=== PATIENT | male | born 1950 | race African-American/Black ===

== ENCOUNTER 2019-12-02 16:10 | Inpatient (IN) | payer OTHER ==
[2019-12-02 17:11] VITALS: BMI 17.6
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
[2019-12-02] MEDS ORDERED: MAGNESIUM HYDROX 2400MG/30ML ORAL SUSPENSION 30 ML CUP PO PRN (18:51)
[2019-12-02] MEDS ORDERED: NICOTINE POLACRILEX 2 MG GUM BUC PRN (18:51)
[2019-12-02] MEDS ORDERED: MENTHOL/PHENOL 1 EACH UD MM PRN (18:51)
[2019-12-02] MEDS ORDERED: MAG HYDROX/AL HYDROX/SIMETH 30 ML UNIT-DOSE CUP PO PRN (18:51)
[2019-12-02] MEDS ORDERED: METHOCARBAMOL 500 MG TABLET PO PRN (18:51)
[2019-12-02] MEDS ORDERED: MAGNESIUM CITRATE 300 ML BOTTLE PO PRN (18:51)
[2019-12-02] MEDS ORDERED: IBUPROFEN 400 MG TABLET (FP) PO PRN (18:51)
[2019-12-02] MEDS ORDERED: BISMUTH SUBSALICYLATE 524 MG/30 ML UD PO PRN (18:51)
[2019-12-02] MEDS ORDERED: chlordiazePOXIDE HCL 25 MG CAPSULE PO PRN (18:51)
[2019-12-02] MEDS ORDERED: ACETAMINOPHEN 325 MG TABLET (FP) PO PRN ×2 (18:51)
[2019-12-02] MEDS ORDERED: ONDANSETRON *ODT* 4 MG TABLET SL ONE (18:51)
[2019-12-02] MEDS: chlordiazePOXIDE HCL 25 MG CAPSULE PO SCH (22:40)
[2019-12-02] MEDS: THIAMINE HCL 100 MG TABLET (FP) PO SCH (22:40)
[2019-12-02] MEDS: MELATONIN 5 MG TABLETS PO SCH (22:45)
[2019-12-03] MEDS: chlordiazePOXIDE HCL 25 MG CAPSULE PO SCH ×4 (05:19→22:34)
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
[2019-12-03] MEDS: ASPIRIN 81 MG CHEWABLE TABLETS PO SCH (10:16)
[2019-12-03] MEDS: FAMOTIDINE 20 MG TABLET PO SCH (10:16)
[2019-12-03] MEDS: PRENATAL VITAMINS W/ FOLIC ACID TABLET (FP) PO SCH (10:17)
[2019-12-03] MEDS: NICOTINE 14 MG/24 HOURS TOPICAL PATCH TD SCH (10:25)
[2019-12-03 10:32] LABS: HEMATOCRIT 35.8 % (35.4-49); HEMOGLOBIN 11.9 GM/dL (11.7-16.9); MCH 33.6 pg (25.7-33.7); MCHC 33.3 g/dl (32.0-35.9); MEAN CELL VOLUME 100.9 fl (80-96); MEAN PLT VOLUME 8.7 fl (7.5-11.1); PLATELET COUNT 92 K/MM3 (134-434); RBC 3.54 M/mm3 (4.00-5.60); RDW 15.3 % (11.9-15.9); WHITE BLOOD COUNT 2.4 K/mm3 (4.0-10.0)
[2019-12-03 10:44] LABS: ALBUMIN 3.5 g/dl (3.4-5.0); BILIRUBIN,TOTAL 0.9 mg/dL (0.2-1); BLOOD UREA NITROGEN 6.4 mg/dL (7-18); CALCIUM 8.9 mg/dL (8.5-10.1); CREATININE 0.9 mg/dL (0.55-1.3); POTASSIUM 3.8 mmol/L (3.5-5.1); TOT PROT 7.3 g/dl (6.4-8.2)
[2019-12-03] MEDS ORDERED: ALBUTEROL SO4 HFA INHALER IH PRN (10:56)
--- NOTE | 2019-12-03 11:03 | PN ---
S CIWA - CIWA Score Nausea/Vomitin-Mild Nausea/No Vomiting Muscle Tremors: 2 Anxiety: 2 Agitation: 2 Paroxysmal Sweats: 1-Minimal Palms Moist Orientation: 0-Oriented Tacttile Disturbances: 1-Very Mild Itch/Numbness Auditory Disturbances: 0-None Visual Disturbances: 0-None Headache: 2-Mild CIWA-Ar Total Score: 11 S Progress Note (SOAP) Subjective: alert,irritable,anxious,interrupted sleep,aching pain,feel weak Objective: 12/03/19 11:03 Vital Signs Temperature 97.3 F L 12/03/19 08:34 Pulse Rate 105 H 12/03/19 08:34 Respiratory Rate 16 12/03/19 08:34 Blood Pressure 134/95 12/03/19 08:34 O2 Sat by Pulse Oximetry (%) 100 12/03/19 08:34 12/03/19 11:04 Laboratory Last Values WBC 2.4 K/mm3 (4.0-10.0) L 12/03/19 08:15 RBC 3.54 M/mm3 (4.00-5.60) L 12/03/19 08:15 Hgb 11.9 GM/dL (11.7-16.9) 12/03/19 08:15 Hct 35.8 % (35.4-49) 12/03/19 08:15 MCV 100.9 fl (80-96) H 12/03/19 08:15 MCH 33.6 pg (25.7-33.7) D 12/03/19 08:15 MCHC 33.3 g/dl (32.0-35.9) 12/03/19 08:15 RDW 15.3 % (11.9-15.9) D 12/03/19 08:15 Plt Count 92 K/MM3 (134-434) L D 12/03/19 08:15 MPV 8.7 fl (7.5-11.1) 12/03/19 08:15 Sodium 141 mmol/L (136-145) 12/03/19 08:15 Potassium 3.8 mmol/L (3.5-5.1) 12/03/19 08:15 Chloride 106 mmol/L (98-107) 12/03/19 08:15 Carbon Dioxide 27 mmol/L (21-32) 12/03/19 08:15 Anion Gap 7 MMOL/L (8-16) L 12/03/19 08:15 BUN 6.4 mg/dL (7-18) L 12/03/19 08:15 Creatinine 0.9 mg/dL (0.55-1.3) 12/03/19 08:15 Est GFR (CKD-EPI)AfAm 101.36 12/03/19 08:15 Est GFR (CKD-EPI)NonAf 87.45 12/03/19 08:15 Random Glucose 90 mg/dL (74-106) 12/03/19 08:15 Calcium 8.9 mg/dL (8.5-10.1) 12/03/19 08:15 Total Bilirubin 0.9 mg/dL (0.2-1) 12/03/19 08:15 AST 74 U/L (15-37) H 12/03/19 08:15 ALT 40 U/L (13-61) 12/03/19 08:15 Alkaline Phosphatase 215 U/L (45-117) H 12/03/19 08:15 Total Protein 7.3 g/dl (6.4-8.2) 12/03/19 08:15 Albumin 3.5 g/dl (3.4-5.0) 12/03/19 08:15 Assessment: 12/03/19 11:05 withdrawal symptom Plan: continue detox librium regimen,leucopenia,thrombocytopenia probably from alcoholism,fall precaution, observe for any bruise or bleeding,use wheelchair as necessary
--- NOTE | 2019-12-03 11:48 | EKG ---
Test Reason : Blood Pressure : / mmHG Vent. Rate : 097 BPM Atrial Rate : 097 BPM P-R Int : 134 ms QRS Dur : 070 ms QT Int : 368 ms P-R-T Axes : 068 046 066 degrees QTc Int : 467 ms NORMAL SINUS RHYTHM NORMAL ECG WHEN COMPARED WITH ECG OF 02-DEC-2019 19:54, NO SIGNIFICANT CHANGE WAS FOUND Confirmed by MD CHU PENG ([id number]) on 12/03/2019 11:48:14 AM Referred By: Confirmed By:HARLEEN CHU MD
[2019-12-03] MEDS: BICTEGRAV/EMTRICIT/TENOFOV (BIKTARVY) 50-200-25 MG TABLET PO SCH (12:07)
[2019-12-03] MEDS: ROSUVASTATIN CA 20 MG TABLET (FP) PO SCH (12:07)
[2019-12-03] MEDS: THIAMINE HCL 100 MG TABLET (FP) PO SCH (22:34)
[2019-12-03] MEDS: MELATONIN 5 MG TABLETS PO SCH (22:35)
[2019-12-04] MEDS: chlordiazePOXIDE HCL 25 MG CAPSULE PO SCH ×4 (06:54→23:02)
[2019-12-04] MEDS: ROSUVASTATIN CA 20 MG TABLET (FP) PO SCH (07:38)
[2019-12-04] MEDS: BICTEGRAV/EMTRICIT/TENOFOV (BIKTARVY) 50-200-25 MG TABLET PO SCH (07:38)
[2019-12-04] MEDS ORDERED: PENICILLIN G BENZATHINE 2,400,000 UNIT/4 ML PFS IM ONE (10:00)
[2019-12-04] MEDS: NICOTINE 14 MG/24 HOURS TOPICAL PATCH TD SCH (10:38)
[2019-12-04] MEDS: PRENATAL VITAMINS W/ FOLIC ACID TABLET (FP) PO SCH (10:38)
[2019-12-04] MEDS: FAMOTIDINE 20 MG TABLET PO SCH (10:38)
[2019-12-04] MEDS: ASPIRIN 81 MG CHEWABLE TABLETS PO SCH (10:38)
--- NOTE | 2019-12-04 11:39 | PN ---
S CIWA - CIWA Score Nausea/Vomitin-Mild Nausea/No Vomiting Muscle Tremors: 2 Anxiety: 2 Agitation: 2 Paroxysmal Sweats: No Perspiration Orientation: 0-Oriented Tacttile Disturbances: 1-Very Mild Itch/Numbness Auditory Disturbances: 0-None Visual Disturbances: 0-None Headache: 2-Mild CIWA-Ar Total Score: 10 S Progress Note (SOAP) Subjective: alert,irritable,anxious,interrupted sleep,aching pain in the body Objective: 12/04/19 11:31 Vital Signs Temperature 97.3 F L 12/04/19 09:18 Pulse Rate 98 H 12/04/19 09:18 Respiratory Rate 18 12/04/19 09:18 Blood Pressure 107/77 12/04/19 09:18 O2 Sat by Pulse Oximetry (%) 99 12/04/19 09:18 Laboratory Last Values WBC 2.4 K/mm3 (4.0-10.0) L 12/03/19 08:15 RBC 3.54 M/mm3 (4.00-5.60) L 12/03/19 08:15 Hgb 11.9 GM/dL (11.7-16.9) 12/03/19 08:15 Hct 35.8 % (35.4-49) 12/03/19 08:15 MCV 100.9 fl (80-96) H 12/03/19 08:15 MCH 33.6 pg (25.7-33.7) D 12/03/19 08:15 MCHC 33.3 g/dl (32.0-35.9) 12/03/19 08:15 RDW 15.3 % (11.9-15.9) D 12/03/19 08:15 Plt Count 92 K/MM3 (134-434) L D 12/03/19 08:15 MPV 8.7 fl (7.5-11.1) 12/03/19 08:15 Sodium 141 mmol/L (136-145) 12/03/19 08:15 Potassium 3.8 mmol/L (3.5-5.1) 12/03/19 08:15 Chloride 106 mmol/L (98-107) 12/03/19 08:15 Carbon Dioxide 27 mmol/L (21-32) 12/03/19 08:15 Anion Gap 7 MMOL/L (8-16) L 12/03/19 08:15 BUN 6.4 mg/dL (7-18) L 12/03/19 08:15 Creatinine 0.9 mg/dL (0.55-1.3) 12/03/19 08:15 Est GFR (CKD-EPI)AfAm 101.36 12/03/19 08:15 Est GFR (CKD-EPI)NonAf 87.45 12/03/19 08:15 Random Glucose 90 mg/dL (74-106) 12/03/19 08:15 Calcium 8.9 mg/dL (8.5-10.1) 12/03/19 08:15 Total Bilirubin 0.9 mg/dL (0.2-1) 12/03/19 08:15 AST 74 U/L (15-37) H 12/03/19 08:15 ALT 40 U/L (13-61) 12/03/19 08:15 Alkaline Phosphatase 215 U/L (45-117) H 12/03/19 08:15 Total Protein 7.3 g/dl (6.4-8.2) 12/03/19 08:15 Albumin 3.5 g/dl (3.4-5.0) 12/03/19 08:15 Syphilis Serology Reactive (NONREACTIVE) A* 12/03/19 08:15 RPR Titer Reactive 1:1 (NONREACTIVE) H D 12/03/19 08:15 denied history of syphilis will give Bicillin 2.4 million Units im today,seun will follow up with Medical Provider at [facility] Assessment: 12/04/19 11:39 withdrawal symptom Plan: continue detox librium regimen,hydration,ensure plus 120 mls po tid,fall precaution,close monitoring
--- NOTE | 2019-12-04 14:04 | PN ---
[facility] Progress Note Note: withdrawal symptom Vital Signs Period Temp Pulse Resp BP Sys/May Pulse Ox Last 24 Hr 97.3 F-98.7 F 86-132 16-18 107-145/56-98 98-99 Vital Signs Temperature 97.5 F L 12/04/19 12:35 Pulse Rate 132 H 12/04/19 12:35 Respiratory Rate 18 12/04/19 12:35 Blood Pressure 121/56 L 12/04/19 12:35 O2 Sat by Pulse Oximetry (%) 99 12/04/19 12:35 on librium regimen will give librium 25 mgs po now vistaril 25 mgs po q 4hrs prs for anxiety continue detox librium regimen
[2019-12-04] MEDS: MELATONIN 5 MG TABLETS PO SCH (23:02)
[2019-12-04] MEDS: THIAMINE HCL 100 MG TABLET (FP) PO SCH (23:02)
[2019-12-05] MEDS ORDERED: chlordiazePOXIDE HCL 10 MG CAPSULE PO PRN
[2019-12-05] MEDS: chlordiazePOXIDE HCL 10 MG CAPSULE PO SCH ×4 (06:41→23:18)
[2019-12-05] MEDS: ROSUVASTATIN CA 20 MG TABLET (FP) PO SCH (07:31)
[2019-12-05] MEDS: BICTEGRAV/EMTRICIT/TENOFOV (BIKTARVY) 50-200-25 MG TABLET PO SCH (07:31)
[2019-12-05] MEDS: FAMOTIDINE 20 MG TABLET PO SCH (10:36)
[2019-12-05] MEDS: PRENATAL VITAMINS W/ FOLIC ACID TABLET (FP) PO SCH (10:36)
[2019-12-05] MEDS: NICOTINE 14 MG/24 HOURS TOPICAL PATCH TD SCH (10:36)
[2019-12-05] MEDS: ASPIRIN 81 MG CHEWABLE TABLETS PO SCH (10:36)
--- NOTE | 2019-12-05 11:22 | PN ---
S CIWA - CIWA Score Nausea/Vomitin-No Nausea/No Vomiting Muscle Tremors: 1-None Visible, but [place] Anxiety: 2 Agitation: 2 Paroxysmal Sweats: 2 Orientation: 0-Oriented Tacttile Disturbances: 0-None Auditory Disturbances: 0-None Visual Disturbances: 0-None Headache: 0-None Present CIWA-Ar Total Score: 7 S Progress Note (SOAP) Subjective: agitation sweats restless Objective: 12/05/19 11:25 Vital Signs Temperature 97.8 F 12/05/19 08:58 Pulse Rate 117 H 12/05/19 08:58 Respiratory Rate 18 12/05/19 08:58 Blood Pressure 107/82 12/05/19 08:58 O2 Sat by Pulse Oximetry (%) 97 12/05/19 08:58 Laboratory Tests 12/02/19 12/03/19 12/03/19 20:48 08:15 08:15 WBC 2.4 L RBC 3.54 L Hgb 11.9 Hct 35.8 MCV 100.9 H MCH 33.6 D MCHC 33.3 RDW 15.3 D Plt Count 92 L D MPV 8.7 Sodium Potassium Chloride Carbon Dioxide Anion Gap BUN Creatinine Est GFR (CKD-EPI)AfAm Est GFR (CKD-EPI)NonAf Random Glucose Calcium Total Bilirubin AST ALT Alkaline Phosphatase Total Protein Albumin Syphilis Serology Reactive A* RPR Titer COVID-19 (MARIA DE JESUS) Not detected 12/03/19 12/03/19 08:15 08:15 WBC RBC Hgb Hct MCV MCH MCHC RDW Plt Count MPV Sodium 141 Potassium 3.8 Chloride 106 Carbon Dioxide 27 Anion Gap 7 L BUN 6.4 L Creatinine 0.9 Est GFR (CKD-EPI)AfAm 101.36 Est GFR (CKD-EPI)NonAf 87.45 Random Glucose 90 Calcium 8.9 Total Bilirubin 0.9 AST 74 H ALT 40 Alkaline Phosphatase 215 H Total Protein 7.3 Albumin 3.5 Syphilis Serology RPR Titer Reactive 1:1 H D COVID-19 (MARIA DE JESUS) labs noted aaox3 ambulating no acute distress Assessment: 12/05/19 11:25 mild withdrawals Plan: continue detox increase fluids
[2019-12-05] MEDS: MELATONIN 5 MG TABLETS PO SCH (23:18)
[2019-12-05] MEDS: THIAMINE HCL 100 MG TABLET (FP) PO SCH (23:19)
[2019-12-06] MEDS: chlordiazePOXIDE HCL 10 MG CAPSULE PO SCH ×2 (06:01→17:41)
[2019-12-06] MEDS: BICTEGRAV/EMTRICIT/TENOFOV (BIKTARVY) 50-200-25 MG TABLET PO SCH (08:05)
[2019-12-06] MEDS: ROSUVASTATIN CA 20 MG TABLET (FP) PO SCH (08:06)
[2019-12-06] MEDS: ASPIRIN 81 MG CHEWABLE TABLETS PO SCH (11:02)
[2019-12-06] MEDS: FAMOTIDINE 20 MG TABLET PO SCH (11:02)
[2019-12-06] MEDS: PRENATAL VITAMINS W/ FOLIC ACID TABLET (FP) PO SCH (11:02)
[2019-12-06] MEDS: NICOTINE 14 MG/24 HOURS TOPICAL PATCH TD SCH (11:02)
--- NOTE | 2019-12-06 14:42 | PN ---
S CIWA - CIWA Score Nausea/Vomitin-Mild Nausea/No Vomiting Muscle Tremors: 1-None Visible, but [place] Anxiety: 1-Mildly Anxious Agitation: 2 Paroxysmal Sweats: No Perspiration Orientation: 0-Oriented Tacttile Disturbances: 0-None Auditory Disturbances: 0-None Visual Disturbances: 0-None Headache: 1-Very Mild CIWA-Ar Total Score: 6 [facility] Progress Note (SOAP) Subjective: alert,irritable,anxious,interrupted sleep,aching pain Objective: 12/06/19 14:41 Vital Signs Temperature 98 F 12/06/19 08:55 Pulse Rate 129 H 12/06/19 08:55 Respiratory Rate 19 12/06/19 08:55 Blood Pressure 111/65 12/06/19 08:55 O2 Sat by Pulse Oximetry (%) 100 12/06/19 08:55 Laboratory Last Values WBC 2.4 K/mm3 (4.0-10.0) L 12/03/19 08:15 RBC 3.54 M/mm3 (4.00-5.60) L 12/03/19 08:15 Hgb 11.9 GM/dL (11.7-16.9) 12/03/19 08:15 Hct 35.8 % (35.4-49) 12/03/19 08:15 MCV 100.9 fl (80-96) H 12/03/19 08:15 MCH 33.6 pg (25.7-33.7) D 12/03/19 08:15 MCHC 33.3 g/dl (32.0-35.9) 12/03/19 08:15 RDW 15.3 % (11.9-15.9) D 12/03/19 08:15 Plt Count 92 K/MM3 (134-434) L D 12/03/19 08:15 MPV 8.7 fl (7.5-11.1) 12/03/19 08:15 Sodium 141 mmol/L (136-145) 12/03/19 08:15 Potassium 3.8 mmol/L (3.5-5.1) 12/03/19 08:15 Chloride 106 mmol/L (98-107) 12/03/19 08:15 Carbon Dioxide 27 mmol/L (21-32) 12/03/19 08:15 Anion Gap 7 MMOL/L (8-16) L 12/03/19 08:15 BUN 6.4 mg/dL (7-18) L 12/03/19 08:15 Creatinine 0.9 mg/dL (0.55-1.3) 12/03/19 08:15 Est GFR (CKD-EPI)AfAm 101.36 12/03/19 08:15 Est GFR (CKD-EPI)NonAf 87.45 12/03/19 08:15 Random Glucose 90 mg/dL (74-106) 12/03/19 08:15 Calcium 8.9 mg/dL (8.5-10.1) 12/03/19 08:15 Total Bilirubin 0.9 mg/dL (0.2-1) 12/03/19 08:15 AST 74 U/L (15-37) H 12/03/19 08:15 ALT 40 U/L (13-61) 12/03/19 08:15 Alkaline Phosphatase 215 U/L (45-117) H 12/03/19 08:15 Total Protein 7.3 g/dl (6.4-8.2) 12/03/19 08:15 Albumin 3.5 g/dl (3.4-5.0) 12/03/19 08:15 Syphilis Serology Reactive (NONREACTIVE) A* 12/03/19 08:15 RPR Titer Reactive 1:1 (NONREACTIVE) H D 12/03/19 08:15 COVID-19 (MARIA DE JESUS) Not detected (Not Detected) 12/02/19 20:48 patient recalled was treated for syphilis when he was young 12/06/19 14:43 received bicillin 2.4 million units on 12/04/2019 Assessment: 12/06/19 14:44 withdrawal symptom Plan: continue detox discharge in am,has all medications with him,follow up with medical provider at [place]
[2019-12-06] MEDS: THIAMINE HCL 100 MG TABLET (FP) PO SCH (22:46)
[2019-12-06] MEDS: MELATONIN 5 MG TABLETS PO SCH (22:47)
[2019-12-07] MEDS ORDERED: chlordiazePOXIDE HCL 10 MG CAPSULE PO ONE (05:00)
[2019-12-07] MEDS: ROSUVASTATIN CA 20 MG TABLET (FP) PO SCH (07:01)
[2019-12-07] MEDS: BICTEGRAV/EMTRICIT/TENOFOV (BIKTARVY) 50-200-25 MG TABLET PO SCH (07:02)
[2019-12-07] MEDS: ASPIRIN 81 MG CHEWABLE TABLETS PO SCH (09:16)
[2019-12-07] MEDS: PRENATAL VITAMINS W/ FOLIC ACID TABLET (FP) PO SCH (09:17)
[2019-12-07] MEDS: NICOTINE 14 MG/24 HOURS TOPICAL PATCH TD SCH (09:17)
[2019-12-07] MEDS: FAMOTIDINE 20 MG TABLET PO SCH (09:17)
[2019-12-07 09:28] VITALS: BP 118/78; TEMP 97.8
[2019-12-07 09:43] VITALS: PULSE 96
--- NOTE | 2019-12-07 10:02 | DS ---
[facility] Detox Discharge Summary Admission Date: 12/02/19 Discharge Date: 12/07/19 - History Present History: Alcohol Dependence Additional Comments: Patient was seen and examined at bedside. Alert and oriented x 3, in no acute respiratory distress. Limited ROM, ambulatory in the unit with cane. Skin warm to touch, dry and scaly. Detox protocol completed, patient stable for discharge. Pertinent Past History: History of asthma, COPD, Hep C ( treated),HIV+, HTN, HLD,, PUD, alcohol and nicotine use disorder. - Physical Exam Results Vital Signs: Vital Signs Temperature 97.8 F 12/07/19 08:58 Pulse Rate 96 H 12/07/19 09:41 Respiratory Rate 18 12/07/19 09:41 Blood Pressure 118/78 12/07/19 08:58 O2 Sat by Pulse Oximetry (%) 98 12/07/19 08:58 Vital Signs 12/07/19 12/07/19 12/07/19 05:38 08:58 09:41 Temperature 98 F 97.8 F Pulse Rate 79 113 H 96 H Respiratory 16 18 18 Rate Blood Pressure 122/87 118/78 O2 Sat by Pulse 98 98 Oximetry (%) Laboratory Last Values WBC 2.4 K/mm3 (4.0-10.0) L 12/03/19 08:15 RBC 3.54 M/mm3 (4.00-5.60) L 12/03/19 08:15 Hgb 11.9 GM/dL (11.7-16.9) 12/03/19 08:15 Hct 35.8 % (35.4-49) 12/03/19 08:15 MCV 100.9 fl (80-96) H 12/03/19 08:15 MCH 33.6 pg (25.7-33.7) D 12/03/19 08:15 MCHC 33.3 g/dl (32.0-35.9) 12/03/19 08:15 RDW 15.3 % (11.9-15.9) D 12/03/19 08:15 Plt Count 92 K/MM3 (134-434) L D 12/03/19 08:15 MPV 8.7 fl (7.5-11.1) 12/03/19 08:15 Sodium 141 mmol/L (136-145) 12/03/19 08:15 Potassium 3.8 mmol/L (3.5-5.1) 12/03/19 08:15 Chloride 106 mmol/L (98-107) 12/03/19 08:15 Carbon Dioxide 27 mmol/L (21-32) 12/03/19 08:15 Anion Gap 7 MMOL/L (8-16) L 12/03/19 08:15 BUN 6.4 mg/dL (7-18) L 12/03/19 08:15 Creatinine 0.9 mg/dL (0.55-1.3) 12/03/19 08:15 Est GFR (CKD-EPI)AfAm 101.36 12/03/19 08:15 Est GFR (CKD-EPI)NonAf 87.45 12/03/19 08:15 Random Glucose 90 mg/dL (74-106) 12/03/19 08:15 Calcium 8.9 mg/dL (8.5-10.1) 12/03/19 08:15 Total Bilirubin 0.9 mg/dL (0.2-1) 12/03/19 08:15 AST 74 U/L (15-37) H 12/03/19 08:15 ALT 40 U/L (13-61) 12/03/19 08:15 Alkaline Phosphatase 215 U/L (45-117) H 12/03/19 08:15 Total Protein 7.3 g/dl (6.4-8.2) 12/03/19 08:15 Albumin 3.5 g/dl (3.4-5.0) 12/03/19 08:15 Syphilis Serology Reactive (NONREACTIVE) A* 12/03/19 08:15 RPR Titer Reactive 1:1 (NONREACTIVE) H D 12/03/19 08:15 COVID-19 (MARIA DE JESUS) Not detected (Not Detected) 12/02/19 20:48 Labs noted. Pertinent Admission Physical Exam Findings: Withdrawal symptoms. - Treatment Hospital Course: Detox Protocol Followed, Detoxed Safely, Responded well, Discharged Condition Good - Medication Discharge Medications: Ambulatory Orders Efavirenz/Emtricit/Tenofovr Df [Atripla Tablet] 1 each PO HS 05/22/12 Folic Acid - 1 mg PO DAILY 05/22/12 Omeprazole [Prilosec (RX)] 1 cap PO DAILY 02/19/13 Vitamin B Complex [B Complex] 1 each PO DAILY 05/22/12 Sertraline HCl [Zoloft -] 25 mg PO DAILY #0 tablet 05/27/12 Aspirin [ASA -] 81 mg PO DAILY 12/02/19 Bictegrav/Emtricit/Tenofov Ala [Biktarvy 50-200-25 mg Tablet] 1 tablet PO DAILY 12/02/19 Famotidine 20 mg PO DAILY 12/02/19 Metoprolol Succinate 50 mg PO DAILY 12/02/19 Multivitamin with Folic Acid [Thera Tablet] 1 tablet PO DAILY 12/02/19 Potassium Chloride 10 meq PO DAILY 12/02/19 Rosuvastatin Calcium [Crestor] 20 mg PO DAILY 12/02/19 Thiamine Mononitrate [Vitamin B-1] 1 tablet PO DAILY 12/02/19 - Diagnosis (1) Alcohol dependence with acute alcoholic intoxication Current Visit: Yes Status: Acute (2) Peptic ulcer Current Visit: Yes Status: Chronic (3) Asthma Current Visit: Yes Status: Chronic (4) COPD (chronic obstructive pulmonary disease) Current Visit: Yes Status: Chronic Qualifiers: COPD type: unspecified COPD Qualified Code(s): J44.9 - Chronic obstructive pulmonary disease, unspecified (5) Essential hypertension Current Visit: Yes Status: Chronic (6) Human immunodeficiency virus infection Current Visit: Yes Status: Chronic (7) Cocaine dependence Current Visit: No Status: Active (8) Hepatitis C carrier Current Visit: No Status: Acute - AMA Did Patient Leave Against Medical Advice: No
== END 2019-12-07 11:13 | disposition home or self-care (01) | DRG 897 ==
LOC: YASAS 16:10 → Y6N 20:31
PROVIDERS: ADMIT Allergy & Immunology; ATTEND Allergy & Immunology
PROC: HZ2ZZZZ Detoxification Services for Substance Abuse Treatment (ICD-10-PCS; principal; 2019-12-02)
DX: F10.230 Alcohol dependence with withdrawal, uncomplicated (principal); F17.210 Nicotine dependence, cigarettes, uncomplicated; F41.9 Anxiety disorder, unspecified; F32.9 Major depressive disorder, single episode, unspecified; Z21 Asymptomatic human immunodeficiency virus [HIV] infection status; E78.5 Hyperlipidemia, unspecified; I10 Essential (primary) hypertension; J44.9 Chronic obstructive pulmonary disease, unspecified; K27.9 Peptic ulcer, site unspecified, unspecified as acute or chronic, without hemorrhage or perforation; B18.2 Chronic viral hepatitis C; Z87.828 Personal history of other (healed) physical injury and trauma; Z99.89 Dependence on other enabling machines and devices; Z91.013 Allergy to seafood; Z91.018 Allergy to other foods
CPT/HCPCS: 36415; 71046-TC-FY; 80053; 85027; 86593; 86780; 93005; 93010; U0003